=== PATIENT | male | born 1985 ===

== ENCOUNTER 2025-04-01 22:27 | Emergency (ER) | payer OTHER ==
[~2025-04-01] VITALS: Ht 175.3 cm; Wt 137.7 kg
[2025-04-01 22:45] VITALS: TEMP 98.705336
[2025-04-01 23:37] VITALS: BP 154/99; PULSE 130; RESP 23; O2SAT 100
[2025-04-01 23:37] LABS: CALCIUM, TOTAL 9.3 mg/dL (8.8-10.5); CREATININE 2.03 mg/dL (0.60-1.30); GLOMERULAR FILTR. RATE CALC 36 mL/min (>60); GLUCOSE,RANDOM 142 mg/dL (70-110); PLATELET COUNT (AUTO) 422 K/uL (150-450); RED BLOOD CELL COUNT(AUTO) 5.73 MIL/uL (4.50-5.90); RED CELL DISTRIBUTION WIDTH 13.1 % (11.5-14.5); SODIUM SERUM 137 mmol/L (136-145); UREA NITROGEN, BLOOD 29 mg/dL (7-18); WHITE BLOOD COUNT (AUTO) 18.7 K/uL (4.5-11.0)
[2025-04-01 23:43] LABS: ALCOHOL, BLOOD (SERUM) < 3 mg/dL (0-10)
[2025-04-01 23:47] LABS: TROPONIN I-HIGH SENSITIVITY 6 ng/L (<76)
== END 2025-04-02 02:11 | disposition left against medical advice (07) ==
LOC: EMS 22:27
DX: R06.02 Shortness of breath (principal); R42 Dizziness and giddiness; Z77.098 Contact with and (suspected) exposure to other hazardous, chiefly nonmedicinal, chemicals
CPT/HCPCS: 99285; 71045; 80048; 83880; 84484; 85025; 36415; 93005; G0480